=== PATIENT | female | born 1965 | race African-American/Black ===

== ENCOUNTER 2020-01-26 08:03 | Day surgery (SDC) | payer OTHER ==
[2020-01-24 12:29] VITALS: BMI 47.6
[2020-01-26 09:47] VITALS: TEMP 96.8
[2020-01-26 10:26] VITALS: BP 118/80; PULSE 62
--- NOTE | 2020-01-29 17:26 | PATH ---
Surgical Pathology Report Patient Name: LISETH SLADE [facility]. Rec. #: [id number] /Age/Gender: 1965 (Age: 54) / F Account: [id number] Location: [facility]-ENDOSCOPY Taken: 01/26/2020 Received: 01/26/2020 Reported: 01/29/2020 Physicians: Gaudencio Lockett M.D. Specimen(s) Received A: ASCENDING COLON POLYP B: DESCENDING COLON POLYP Clinical History Screening colonoscopy, family history of colon polyps Postoperative diagnosis: Colon polyps, hemorrhoids Final Diagnosis A. ASCENDING COLON, POLYP, BIOPSY: TUBULAR ADENOMA. B. DESCENDING COLON, POLYP, BIOPSY: TUBULAR ADENOMA. Electronically Signed Gardenia Noguera M.D. Gross Description A. Received in formalin, labeled "ascending colon polyp" are 4 masterson, irregular portions of soft tissue averaging 0.2 cm. in greatest dimension. The specimens are submitted in toto in one cassette. B. Received in formalin, labeled "descending colon polyp" is a masterson, irregular portion of soft tissue measuring 0.2 cm. in greatest dimension. The specimen is submitted in toto in one cassette. DL/01/26/2020 saudi/01/26/2020
== END 2020-01-26 10:46 | disposition home or self-care (01) ==
LOC: JASU-ENDO 08:03
PROVIDERS: ATTEND Internal Medicine Gastroenterology
PROC: 0DBM8ZX Excision of Descending Colon, Via Natural or Artificial Opening Endoscopic, Diagnostic (ICD-10-PCS; 2020-01-26)
PROC: 0DBK8ZX Excision of Ascending Colon, Via Natural or Artificial Opening Endoscopic, Diagnostic (ICD-10-PCS; principal; 2020-01-26 09:30)
DX: Z12.11 Encounter for screening for malignant neoplasm of colon (principal); Z83.71 Family history of colonic polyps; K64.8 Other hemorrhoids; E66.01 Morbid (severe) obesity due to excess calories
CPT/HCPCS: 88305-TC